=== PATIENT | male | born 1950 | race Caucasian/White ===

== ENCOUNTER 2018-01-30 09:09 | Inpatient (IN) | payer MEDICAID ==
[2018-01-30] MEDS ORDERED: DILTIAZEM 25 MG INJ (09:27)
[2018-01-30 09:36] LABS: ADD MAN DIFF? NO
[2018-01-30 09:41] LABS: ABNORMAL IP MESSAGE 1; BASOPHIL # 0.1 10^3/ul (0.0-0.1); BASOPHILS % 0.5 % (0.0-2.0); EOSINOPHILS # 0.3 10^3/ul (0.0-0.5); EOSINOPHILS % 2.4 % (0.0-7.0); HEMATOCRIT 46.2 % (42.0-52.0); HEMOGLOBIN 15.6 g/dl (14.0-18.0); IMMATURE GRANS #M 0.04 10^3/ul; IMMATURE GRANS % (M) 0.3 %; LYMPHOCYTES # 6.2 10^3/ul (0.8-2.9); LYMPHOCYTES % 53.9 % (15.0-51.0); MEAN CORPUSCULAR HEMOGLOBIN 30.4 pg (29.0-33.0); MEAN CORPUSCULAR HGB CONC 33.8 g/dl (32.0-37.0); MEAN CORPUSCULAR VOLUME 89.9 fl (82.0-101.0); MEAN PLATELET VOLUME 10.2 fl (7.4-10.4); MONOCYTE # 0.8 10^3/ul (0.3-0.9); NEUTROPHIL # 4.1 10^3/ul (1.6-7.5); NEUTROPHILS % 35.9 % (39.0-77.0); PLATELET COUNT 211 10^3/UL (140-415); POSITIVE DIFF @See below; RED BLOOD COUNT 5.14 10^6/ul (4.70-6.10)
[2018-01-30 09:41] LABS: WHITE BLOOD COUNT 11.5 10^3/ul (4.8-10.8)
[2018-01-30] MEDS: ASPIRIN 325 MG TAB PO (09:41)
[2018-01-30] MEDS: morphine 4 MG/ML VIAL IV (09:41)
[2018-01-30] MEDS: ONDANSETRON 4 MG INJ IV (09:41)
[2018-01-30] MEDS: DILTIAZEM 25 MG INJ IV (09:41)
[2018-01-30] MEDS: SOD CHLORIDE 0.9% 1,000 ML IV ×3 (09:41→12:01)
[2018-01-30] MEDS: HEPARIN 1000 UNITS/ML 10 ML INJ IV (09:42)
[2018-01-30] MEDS: CLOPIDOGREL 75 MG TAB PO (09:46)
[2018-01-30] MEDS: NITROGLYCERIN (SL) 0.4 MG TAB SL (09:50)
[2018-01-30 09:59] LABS: ANION GAP 15 (8-16); BLOOD UREA NITROGEN 19 mg/dl (7-20); CALCIUM 9.6 mg/dl (8.4-10.2); CARBON DIOXIDE 22 mmol/L (21-31); CHLORIDE 109 mmol/L (97-110); CREATININE 1.03 mg/dl (0.61-1.24); GLUCOSE 144 mg/dl (70-220); POTASSIUM 3.4 mmol/L (3.5-5.1); SODIUM 143 mmol/L (135-144)
[2018-01-30 10:01] LABS: INR 0.88; PT RATIO 0.9
[2018-01-30 10:02] LABS: PARTIAL THROMBOPLASTIN TIME 29.1 Sec (25.0-35.0)
[2018-01-30] MEDS ORDERED: MIDAZOLAM 1 MG/ML 2 ML INJ (10:05)
[2018-01-30] MEDS ORDERED: IODIXANOL LOCM 100 ML BTL (10:05)
[2018-01-30] MEDS ORDERED: HEPARIN 1000 UNITS/ML 10 ML INJ (10:05)
[2018-01-30] MEDS ORDERED: VERAPAMIL 5 MG INJ (10:05)
[2018-01-30] MEDS ORDERED: FENTAnyl 50 MCG/ML VIAL (10:05)
[2018-01-30 10:11] LABS: TROPONIN-I 0.026 ng/ml (0.000-0.120)
[2018-01-30] MEDS ORDERED: ONDANSETRON 4 MG INJ IV (11:30)
[2018-01-30] MEDS ORDERED: ACETAMINOPHEN 325 MG TAB PO (11:30)
[2018-01-30 11:57] LABS: ADD MAN DIFF? NO
[2018-01-30 12:01] LABS: BASOPHILS % 0.3 % (0.0-2.0); EOSINOPHILS % 0.3 % (0.0-7.0); HEMATOCRIT 44.2 % (42.0-52.0); HEMOGLOBIN 14.9 g/dl (14.0-18.0); IMMATURE GRANS #M 0.03 10^3/ul; IMMATURE GRANS % (M) 0.3 %; LYMPHOCYTES # 1.1 10^3/ul (0.8-2.9); LYMPHOCYTES % 10.9 % (15.0-51.0); MEAN CORPUSCULAR HEMOGLOBIN 29.8 pg (29.0-33.0); MEAN CORPUSCULAR HGB CONC 33.7 g/dl (32.0-37.0); MEAN CORPUSCULAR VOLUME 88.4 fl (82.0-101.0); MEAN PLATELET VOLUME 9.8 fl (7.4-10.4); MONOCYTE # 0.3 10^3/ul (0.3-0.9); MONOCYTES % 2.6 % (0.0-11.0); NEUTROPHILS % 85.6 % (39.0-77.0); PLATELET COUNT 206 10^3/UL (140-415); RED CELL DISTRIBUTION WIDTH 13.2 % (11.5-14.5)
[2018-01-30 12:01] LABS: WHITE BLOOD COUNT 10.5 10^3/ul (4.8-10.8)
[2018-01-30 12:20] LABS: INR 0.99; PROTIME 13.2 Sec (11.9-14.9)
[2018-01-30] MEDS ORDERED: HYDROCODONE/APAP (5/325) TAB PO (12:30)
[2018-01-30] MEDS ORDERED: ACETAMINOPHEN 650MG/20.3ML CUP PO (12:30)
[2018-01-30 12:38] LABS: PARTIAL THROMBOPLASTIN TIME 158.4 Sec (25.0-35.0)
[2018-01-30] MEDS: METOPROLOL 50 MG TAB PO (13:27)
[2018-01-30] MEDS: morphine 2 MG INJ IV ×2 (17:17→21:19)
[2018-01-30] MEDS: AMIODARONE 150MG/D5W BOLUS 100 ML IV (20:23)
[2018-01-30] MEDS: AMIODARONE 900 MG in DEXTROSE 5% 482 ML IV (20:30)
[2018-01-30] MEDS: ATORVASTATIN 40 MG TAB PO (20:54)
[2018-01-30] MEDS ORDERED: METOPROLOL 5 MG INJ IV (21:30)
[2018-01-30] MEDS: LISINOPRIL 5 MG TAB PO (21:44)
[2018-01-31 06:39] LABS: HDL CHOLESTEROL 45 mg/dl (30-78); LDL CHOLESTEROL,CALCULATED 112 mg/dl; TRIGLYCERIDES 133 mg/dl (0-149)
[2018-01-31 06:39] LABS: CHOLESTEROL 184 mg/dl (100-200)
[2018-01-31] MEDS: METOPROLOL 50 MG TAB PO (08:40)
[2018-01-31] MEDS: CLOPIDOGREL 75 MG TAB PO (08:40)
[2018-01-31] MEDS: ASPIRIN (EC) 81 MG TAB PO (08:40)
[2018-01-31] MEDS: LISINOPRIL 5 MG TAB PO (08:41)
[2018-01-31] MEDS: ENOXAPARIN 40 MG/0.4 ML SYG SC (09:00)
== END 2018-01-31 17:10 | disposition home or self-care (01) | DRG 247 ==
LOC: ICU 10:19 → E/R 09:09 → CCL 10:18 → SDS 10:18 → ICU 11:00
PROC: 027034Z Dilation of Coronary Artery, One Artery with Drug-eluting Intraluminal Device, Percutaneous Approach (ICD-10-PCS; principal; 2018-01-30 10:00)
PROC: 4A023N7 Measurement of Cardiac Sampling and Pressure, Left Heart, Percutaneous Approach (ICD-10-PCS; 2018-01-30 10:00)
PROC: B211YZZ Fluoroscopy of Multiple Coronary Arteries using Other Contrast (ICD-10-PCS; 2018-01-30 10:00)
PROC: B215YZZ Fluoroscopy of Left Heart using Other Contrast (ICD-10-PCS; 2018-01-30 10:00)
DX: I21.3 ST elevation (STEMI) myocardial infarction of unspecified site (principal); I25.119 Atherosclerotic heart disease of native coronary artery with unspecified angina pectoris; I10 Essential (primary) hypertension; E11.9 Type 2 diabetes mellitus without complications; I48.91 Unspecified atrial fibrillation; E78.5 Hyperlipidemia, unspecified; Z79.82 Long term (current) use of aspirin; Z79.02 Long term (current) use of antithrombotics/antiplatelets; Z87.891 Personal history of nicotine dependence
CPT/HCPCS: 36415; 71045; 80048; 80061; 83036; 84484; 85025; 85610; 85730; 87081; 93005; 93306; 93458; 96374; 96375; 99291-25